=== PATIENT | female | born 1960 | race Two or more races ===

== ENCOUNTER 2017-12-25 08:25 | Outpatient (CLI) | payer OTHER ==
[~2017-12-25 08:25] MED LIST: CATAFLAM50 MG; IBUPROFEN800 MG PO
== END 2017-12-25 08:44 | disposition home or self-care (01) ==
LOC: RAD 501 08:25
DX: M16.12 Unilateral primary osteoarthritis, left hip (principal)

== ENCOUNTER 2017-12-26 07:33 | Outpatient (CLI) | payer OTHER | END 2017-12-26 07:44 | disposition home or self-care (01) | LOC: MRI 07:33 | DX: M25.552 Pain in left hip (principal) | CPT/HCPCS: 73721 ==

== ENCOUNTER 2018-01-13 08:59 | Outpatient (CLI) | payer OTHER | END 2018-01-13 09:12 | disposition home or self-care (01) | LOC: RAD 501 08:59 | DX: Z76.89 Persons encountering health services in other specified circumstances (principal) ==

== ENCOUNTER 2018-01-27 06:06 | Day surgery (SDC) | payer OTHER | END 2018-01-27 13:40 | disposition home or self-care (01) | LOC: CIR.AMB 06:06 | DX: M75.01 Adhesive capsulitis of right shoulder (principal); M75.51 Bursitis of right shoulder ==

== ENCOUNTER 2018-05-28 07:38 | Outpatient (CLI) | payer OTHER | END 2018-05-28 09:23 | disposition home or self-care (01) | LOC: MAMO-SONO 07:38 | DX: Z12.31 Encounter for screening mammogram for malignant neoplasm of breast (principal); N64.4 Mastodynia; N60.11 Diffuse cystic mastopathy of right breast; N60.12 Diffuse cystic mastopathy of left breast ==

== ENCOUNTER 2018-09-10 13:51 | Outpatient (CLI) | payer OTHER | END 2018-09-10 14:05 | disposition home or self-care (01) | LOC: NUCLEAR 13:51 | DX: M81.0 Age-related osteoporosis without current pathological fracture (principal) ==

== ENCOUNTER 2019-03-14 09:37 | Emergency (ER) | payer OTHER ==
[~2019-03-14] VITALS: Ht 261.6 cm; Wt 54.4 kg
== END 2019-03-14 12:50 | disposition home or self-care (01) ==
LOC: ER 09:37
DX: M76.891 Other specified enthesopathies of right lower limb, excluding foot (principal)

== ENCOUNTER 2020-09-05 11:16 | Outpatient (CLI) | payer OTHER | END 2020-09-05 11:25 | disposition home or self-care (01) | LOC: RAD 11:16 | PROVIDERS: ATTEND Orthopaedic Surgery | DX: M25.551 Pain in right hip (principal); M25.512 Pain in left shoulder ==

== ENCOUNTER 2020-09-06 08:44 | Outpatient (CLI) | payer OTHER | END 2020-09-06 08:50 | disposition home or self-care (01) | LOC: LAB 08:44 | PROVIDERS: ATTEND Orthopaedic Surgery | DX: M85.88 Other specified disorders of bone density and structure, other site (principal); E55.9 Vitamin D deficiency, unspecified; E21.2 Other hyperparathyroidism; E88.89 Other specified metabolic disorders; M81.8 Other osteoporosis without current pathological fracture; E56.1 Deficiency of vitamin K ==

== ENCOUNTER 2020-09-12 13:58 | Outpatient (CLI) | payer OTHER | END 2020-09-12 14:16 | disposition home or self-care (01) | LOC: NUCLEAR 13:58 | PROVIDERS: ATTEND Orthopaedic Surgery | DX: M81.0 Age-related osteoporosis without current pathological fracture (principal) ==

== ENCOUNTER 2024-09-06 13:23 | Emergency (ER) | payer OTHER ==
[~2024-09-06] VITALS: Ht 162.6 cm; Wt 56.7 kg
[2024-09-06 13:30] VITALS: BP 132/79; O2SAT 100
[2024-09-06] MEDS ORDERED: CLINDAMYCIN PHOSPHATE 150 MG/ML (600mg) IM ONE (13:45)
[2024-09-06] MEDS ORDERED: TETANUS & DIPHTHERIA TOX,ADULT 0.5 ML VIAL IM ONE (13:45)
== END 2024-09-06 14:00 | disposition home or self-care (01) ==
LOC: ER 13:23
DX: S60.571A Other superficial bite of hand of right hand, initial encounter (principal); S50.871A Other superficial bite of right forearm, initial encounter; W55.01XA Bitten by cat, initial encounter; Y93.89 Activity, other specified; Y92.89 Other specified places as the place of occurrence of the external cause; Z88.0 Allergy status to penicillin